=== PATIENT | male | born 1985 | race Caucasian/White ===

== ENCOUNTER → 2017-01-17 | Outpatient (CLI) | payer OTHER ==
--- NOTE | 2017-01-17 22:56 | REP ---
Clinical: Sprain. Technique: AP, lateral, bilateral oblique views of the left ankle. Findings: Lateral soft tissue swelling appreciated. No acute fracture dislocation. Ankle mortise intact. Impression: Lateral swelling. No acute fracture or dislocation. Signed by Xavier Chowdhury MD 01/17/2017 10:47 P
== END ==
LOC: M WUC 16:32
PROVIDERS: ATTEND Physician Assistant
DX: S93.422A Sprain of deltoid ligament of left ankle, initial encounter (principal); X58.XXXA Exposure to other specified factors, initial encounter; Y92.89 Other specified places as the place of occurrence of the external cause; Y93.89 Activity, other specified; Y99.8 Other external cause status